=== PATIENT | male | born 1980 | race Caucasian/White ===

== ENCOUNTER 2019-01-30 07:19 | Emergency (ER) | payer MEDICAID, OTHER, SELFPAY ==
[~2019-01-30] VITALS: Ht 177.8 cm; Wt 86.4 kg
[2019-01-30] MEDS ORDERED: IBUP200C25 PO (07:26)
--- NOTE | 2019-01-30 08:30 | REP ---
PA and lateral chest: There are no comparisons. The lung crow are clear. The cardiac size is normal. The jose, mediastinum, and skeletal structures are unremarkable. Impression: Negative PA and lateral chest. Electronically Signed by Gurmeet Vital MD 01/30/2019 08:20 A
[2019-01-30] MEDS ORDERED: ALBUTEROL SULFATE 2.5 MG/0.5 ML INH NEB SOLN NEB ONE ×2 (09:15)
[2019-01-30] MEDS ORDERED: IPRATROPIUM 0.5MG/ALBUTEROL 2.5MG INH SOL UD 3ML (DUONEB)(J7620) NEB ONE (09:15)
[2019-01-30 09:56] LABS: INFLUENZA A AMPLIFICATION NEGATIVE (NEGATIVE); INFLUENZA B AMPLIFICATION NEGATIVE (NEGATIVE)
[2019-01-30] MEDS ORDERED: NS 1,000 ML IV ONE (10:15)
[2019-01-30] MEDS ORDERED: methylPREDNISolone INJ 125 MG/2 ML VIAL (J2930) IV ONE (10:15)
[2019-01-30] MEDS ORDERED: ACETAMINOPHEN 325 MG TAB PO ONE (10:30)
[2019-01-30 11:02] LABS: BASO % 0.4 % (0.0-1.0); EOS # 0.1 10^3/uL (0.0-0.5); EOS % 0.7 % (0.0-3.0); HEMATOCRIT 44.8 % (42.0-52.0); HEMOGLOBIN 16.2 g/dl (13.5-17.5); LYMPH # 2.8 10^3/uL (1.5-5.0); LYMPH % 27.4 % (24.0-44.0); MEAN CORPUSCULAR HEMOGLOBIN 32.5 pg (27.0-33.0); MEAN CORPUSCULAR HGB CONC 36.2 g/dl (32.0-36.5); MEAN CORPUSCULAR VOLUME 89.8 fl (80.0-96.0); MONO # 0.6 10^3/uL (0.0-0.8); MONO % 5.7 % (0.0-5.0); NEUTROPHILS # 6.8 10^3/uL (1.5-8.5); NEUTROPHILS % 65.4 % (36.0-66.0); PLATELET COUNT, AUTOMATED 196 10^3/uL (150-450); RED BLOOD COUNT 4.99 10^6/uL (4.30-6.10); WHITE BLOOD COUNT 10.4 10^3/uL (4.0-10.0)
[2019-01-30 12:04] LABS: BLOOD UREA NITROGEN 11 MG/DL (7-18); CARBON DIOXIDE LEVEL 27 MEQ/L (21-32); CHLORIDE LEVEL 106 MEQ/L (98-107); CREATININE FOR GFR 0.95 MG/DL (0.70-1.30); GLOMERULAR FILTRATION RATE > 60.0 (>60); GLUCOSE, FASTING 99 MG/DL (70-100); POTASSIUM SERUM 4.3 MEQ/L (3.5-5.1); SODIUM LEVEL 140 MEQ/L (136-145)
[2019-01-30 12:36] VITALS: O2SAT 90
[2019-01-30] MEDS ORDERED: ISOVUE-370 76% 100ML VIAL (Q9967) As Ordered ONE (12:47)
--- NOTE | 2019-01-30 13:45 | REP ---
CT of the chest with IV contrast: CT pulmonary angiography: There are no comparison studies. The pulmonary arteries are only marginally opacified, the majority of the contrast is in either the thoracic aorta. There are no emboli in the pulmonary trunk or central pulmonary arteries. There are questionable pulmonary emboli in the lower lobe pulmonary arteries bilaterally. However, this could be artifact from suboptimal opacification. There are no infiltrates. No pleural effusions. There are no masses or nodules. There is no mediastinal, hilar or axillary lymphadenopathy. The thoracic aorta is unremarkable. Cardiac size is normal. There is no pericardial effusion. The visualized upper abdominal contents are unremarkable. Impression: Suboptimal opacification of the mid and distal pulmonary arteries. There are no central pulmonary emboli. There are questionable pulmonary artery emboli in the lower lobe pulmonary arteries bilaterally, however, this could be artifact from suboptimal opacification. Electronically Signed by Gurmeet Vital MD 01/30/2019 01:37 P
[2019-01-30] MEDS ORDERED: AZIT-12 PO ×2 (14:55→16:02)
[2019-01-30] MEDS ORDERED: VENTAER INH ×2 (14:55→16:02)
[2019-01-30] MEDS ORDERED: COMPMIS43 XX (14:55)
[2019-01-30] MEDS ORDERED: ALBU83IN NEB ×2 (14:55→16:02)
[2019-01-30] MEDS ORDERED: PRED20TA PO ×2 (14:55→16:02)
[2019-01-30 15:03] VITALS: BP 143/69
== END 2019-01-30 15:37 | disposition left against medical advice (07) ==
LOC: M ED 07:19
DX: R91.8 Other nonspecific abnormal finding of lung field (principal); R09.02 Hypoxemia; J20.9 Acute bronchitis, unspecified
CPT/HCPCS: 71046; 71275; 80048; 83605; 85025; 87040; 87502; 94640; 96361; 96374; 99284; J2930; Q9967

== ENCOUNTER 2021-09-03 22:53 | Emergency (ER) | payer OTHER, SELFPAY ==
[~2021-09-03] VITALS: Ht 177.8 cm; Wt 93.2 kg
[~2021-09-03 22:53] MED LIST: ALBU83IN NEB; AZIT-12 PO; COMPMIS43 XX; IBUP200C25 PO; PRED20TA PO; VENTAER INH
[2021-09-03] MEDS ORDERED: methocarbamoL 750 MG TAB PO ONE (23:25)
[2021-09-03] MEDS ORDERED: IBUPROFEN 600MG TAB PO ONE (23:25)
[2021-09-03] MEDS ORDERED: METH-1165 PO (23:46)
[2021-09-03 23:54] VITALS: BP 130/80
== END 2021-09-03 23:56 | disposition home or self-care (01) ==
LOC: M ED 22:53
DX: S16.1XXA Strain of muscle, fascia and tendon at neck level, initial encounter (principal); Y92.098 Other place in other non-institutional residence as the place of occurrence of the external cause; Y93.84 Activity, sleeping; Y99.8 Other external cause status; F17.210 Nicotine dependence, cigarettes, uncomplicated